=== PATIENT | female | born 1985 | race Native Hawaiian/Other Pacific Islander ===

== ENCOUNTER → 2017-05-23 | Outpatient (REF) | payer BC, OTHER ==
[~2017-05-23] MED LIST: ACET50TA PO; DOCU10CA PO; MOTR200T44 PO
[2017-05-23 13:39] LABS: MEAN CORPUSCULAR HEMOGLOBIN 29.3 pg (27.0-33.0); MEAN CORPUSCULAR HGB CONC 33.8 g/dl (32.0-36.5); MEAN CORPUSCULAR VOLUME 86.8 fl (80.0-96.0); PLATELET COUNT, AUTOMATED 285 10^3/uL (150-450); RED CELL DISTRIBUTION WIDTH 11.9 % (11.5-14.5); WHITE BLOOD COUNT 10.1 10^3/uL (4.0-10.0)
[2017-05-23 14:12] LABS: HCG, SERUM QUANTITATIVE 68810 MIU/ML
[2017-05-24 11:56] LABS: HBsAg Prenatal NEGATIVE (NEGATIVE)
== END ==
LOC: M LAB REF 12:55
PROVIDERS: ATTEND Obstetrics & Gynecology
DX: O36.80X0 Pregnancy with inconclusive fetal viability, not applicable or unspecified (principal); Z36.89 Encounter for other specified antenatal screening; Z3A.00 Weeks of gestation of pregnancy not specified

== ENCOUNTER → 2017-09-07 | Outpatient (CLI) | payer OTHER ==
[2017-09-07 13:32] LABS: HEMATOCRIT 32.6 % (36.0-47.0); HEMOGLOBIN 10.7 g/dl (12.0-15.5); MEAN CORPUSCULAR HEMOGLOBIN 29.9 pg (27.0-33.0); MEAN CORPUSCULAR HGB CONC 32.8 g/dl (32.0-36.5); MEAN CORPUSCULAR VOLUME 91.1 fl (80.0-96.0); PLATELET COUNT, AUTOMATED 221 10^3/uL (150-450); RED BLOOD COUNT 3.58 10^6/uL (4.00-5.40); RED CELL DISTRIBUTION WIDTH 12.2 % (11.5-14.5); WHITE BLOOD COUNT 12.3 10^3/uL (4.0-10.0)
[2017-09-07 13:49] LABS: GLUCOSE CHALLENGE TEST 1 HOUR 211 MG/DL (LESS THAN 140)
== END ==
LOC: M LAB 11:07
DX: Z34.82 Encounter for supervision of other normal pregnancy, second trimester (principal)
CPT/HCPCS: 82950

== ENCOUNTER 2017-11-04 00:46 | Inpatient (IN) | payer OTHER ==
[2017-11-04] MEDS ORDERED: OXYTOCIN 30 UNITS IN 0.9% NaCl 500ML IV BAG (J2590) As Ordered (01:31)
[2017-11-04 01:43] LABS: BASO # 0.1 10^3/uL (0.0-0.2); BASO % 0.5 % (0.0-1.0); EOS # 0.2 10^3/uL (0.0-0.50); EOS % 1.1 % (0.0-3.0); HEMATOCRIT 33.5 % (36.0-47.0); HEMOGLOBIN 11.5 g/dl (12.0-15.5); IMMATURE GRANULOCYTE % 0.4 % (0-3.0); LYMPH # 2.9 10^3/uL (1.5-4.5); MEAN CORPUSCULAR HEMOGLOBIN 30.3 pg (27.0-33.0); MEAN CORPUSCULAR HGB CONC 34.3 g/dl (32.0-36.5); MEAN CORPUSCULAR VOLUME 88.2 fl (80.0-96.0); MONO # 0.8 10^3/uL (0.0-0.8); MONO % 5.6 % (0.0-5.0); NEUTROPHILS # 9.9 10^3/uL (1.8-7.7); NEUTROPHILS % 71.4 % (36.0-66.0); PLATELET COUNT, AUTOMATED 173 10^3/uL (150-450); RED CELL DISTRIBUTION WIDTH 12.6 % (11.5-14.5); WHITE BLOOD COUNT 13.8 10^3/uL (4.0-10.0)
[2017-11-04 02:15] LABS: CORD GAS ABE A -0.7; CORD GAS ABE V -2.5; CORD GAS HCO3 A 25.7 MEQ/L; CORD GAS HCO3 V 22.4 MEQ/L; CORD GAS O2 SAT A 65.7 %; CORD GAS O2 SAT V 76.3 %; CORD GAS PCO2 A 48.7 mmHg; CORD GAS PCO2 V 39.2 mmHg; CORD GAS PH A 7.341 UNITS; CORD GAS PH V 7.374 UNITS; CORD GAS PO2 A 27.5 mmHg; CORD GAS PO2 V 32.5 mmHg; CORD GAS SBC V 21.8 MEQ/L; CORD GAS TCO2 A 27.2 MEQ/L; CORD GAS TCO2 V 23.6 MEQ/L
[2017-11-04] MEDS: OXYTOCIN DRIP 30 UNITS in APPROPRIATE DILUENT 1 EA IV (02:37)
[2017-11-04] MEDS ORDERED: MEASLES,MUMPS,RUBELLA VACCINE INJ (MMR-II) (90707) SC (02:45)
[2017-11-04] MEDS ORDERED: METHYLERGONOVINE MALEATE 0.2 MG TAB PO (02:45)
[2017-11-04] MEDS ORDERED: ACETAMINOPHEN 500 MG TAB PO (02:45)
[2017-11-04] MEDS ORDERED: RHOGAM 300 MCG (1500 IU) INJ (J2790) IM (02:45)
[2017-11-04] MEDS ORDERED: DIBUCAINE 1% OINTMENT 30GM TOP (02:45)
[2017-11-04] MEDS: PRENATAL VITAMINS CHEWABLE TABLET PO (07:31)
[2017-11-04] MEDS: IBUPROFEN 800 MG TAB PO (10:28)
[2017-11-05] MEDS: PRENATAL VITAMINS CHEWABLE TABLET PO (09:24)
[2017-11-05] MEDS: DOCUSATE SODIUM 100 MG CAP PO (15:41)
[2017-11-06] MEDS: PRENATAL VITAMINS CHEWABLE TABLET PO (08:09)
== END 2017-11-06 15:21 | disposition home or self-care (01) | DRG 560 ==
LOC: M LDO 00:46 → M LDI 01:25 → M OBS 03:55
PROVIDERS: Obstetrics & Gynecology
PROC: 10E0XZZ Delivery of Products of Conception, External Approach (ICD-10-PCS; principal; 2017-11-04)
DX: O60.14X0 Preterm labor third trimester with preterm delivery third trimester, not applicable or unspecified (principal); O24.420 Gestational diabetes mellitus in childbirth, diet controlled; Z3A.34 34 weeks gestation of pregnancy; Z37.0 Single live birth

== ENCOUNTER → 2024-12-05 | Outpatient (CLI) | payer OTHER ==
[~2024-12-05] MED LIST changes: -ACET50TA PO; +IBUP-1114 PO; +MAPA500T2 PO; +PRENTAB9 PO
[2024-12-05 15:54] LABS: BASO # 0.1 10^3/uL (0.0-0.2); BASO % 0.7 % (0.0-1.0); EOS # 0.1 10^3/uL (0.0-0.5); EOS % 1.2 % (0.0-3.0); HEMATOCRIT 39.7 % (36.0-47.0); HEMOGLOBIN 13.2 g/dl (12.0-15.5); LYMPH # 2.4 10^3/uL (1.5-5.0); MEAN CORPUSCULAR HGB CONC 33.2 g/dl (32.0-36.5); MEAN CORPUSCULAR VOLUME 87.3 fl (80.0-96.0); MONO # 0.6 10^3/uL (0.0-0.8); MONO % 6.6 % (2.0-8.0); NEUTROPHILS # 5.5 10^3/uL (1.5-8.5); NEUTROPHILS % 63.3 % (36.0-66.0); PLATELET COUNT, AUTOMATED 254 10^3/uL (150-450); RED BLOOD COUNT 4.55 10^6/uL (4.00-5.40); WHITE BLOOD COUNT 8.7 10^3/uL (4.0-10.0)
[2024-12-05 16:06] LABS: ERYTHROCYTE SEDIMENTATION RATE 31 mm/hr (0-20)
[2024-12-05 16:17] LABS: C REACTIVE PROTEIN QUANTITATIV 0.72 MG/DL (<1.0)
[2024-12-05 16:18] LABS: ALBUMIN 4.1 G/DL (3.2-5.2); ALKALINE PHOSPHATASE 43 U/L (35-104); ALT/SGPT 9 U/L (7.0-40); AST/SGOT 18 U/L (<34); BILIRUBIN,TOTAL 0.4 MG/DL (0.3-1.2); BLOOD UREA NITROGEN 10 MG/DL (9-23); CALCIUM LEVEL 9.1 MG/DL (8.5-10.1); CARBON DIOXIDE LEVEL 28 MMOL/L (20-31); CHLORIDE LEVEL 106 MMOL/L (98-107); CREATININE FOR GFR 0.61 MG/DL (0.55-1.30); GLOMERULAR FILTRATION RATE > 90.0 (>60); GLUCOSE, FASTING 105 MG/DL (60-100); POTASSIUM SERUM 4.5 MMOL/L (3.5-5.1); SODIUM LEVEL 142 MMOL/L (136-145); TOTAL PROTEIN 7.1 G/DL (5.7-8.2)
[2024-12-05 16:19] LABS: THYROID STIMULATING HORMONE 4.442 uIU/ML (0.55-4.78)
[2024-12-05 16:21] LABS: RHEUMATOID FACTOR QUANT < 3.5 IU/ML (<14)
[2024-12-10 10:15] LABS: ANA SCREEN, IFA NEGATIVE (NEGATIVE)
== END ==
LOC: M PLALAB 12:44
PROVIDERS: ATTEND Internal Medicine Infectious Disease
DX: M54.50 Low back pain, unspecified (principal)

== ENCOUNTER 2025-02-03 13:58 | Emergency (ER) | payer OTHER ==
[~2025-02-03] VITALS: Ht 152.4 cm; Wt 53.0 kg
[2025-02-03] MEDS: DERMABOND TOPICAL SKIN ADHESIVE TOP ONE (14:50)
[2025-02-03] MEDS: TETANUS/DIPHTH/ACEL. PERTUSSIS 0.5 ML SYR IM.IMMUN ONE (15:05)
[2025-02-03 15:23] VITALS: BP 130/59; TEMP 97.5; O2SAT 98
== END 2025-02-03 15:23 | disposition home or self-care (01) ==
LOC: M ED 13:58
DX: S61.512A Laceration without foreign body of left wrist, initial encounter (principal); W26.9XXA Contact with unspecified sharp object(s), initial encounter; Y92.89 Other specified places as the place of occurrence of the external cause; Y93.89 Activity, other specified; Y99.0 Civilian activity done for income or pay; Z23 Encounter for immunization; Z79.1 Long term (current) use of non-steroidal anti-inflammatories (NSAID); Z79.899 Other long term (current) drug therapy